=== PATIENT | male | born 1965 | race Caucasian/White ===

== ENCOUNTER 2018-04-27 08:52 | Day surgery (SDC) | payer OTHER ==
[~2018-04-27] VITALS: Ht 170.2 cm; Wt 70.8 kg
[~2018-04-27 08:52] MED LIST: IBUP400; LISI5; NAPR220 PO; NAPR550 PO; Naprosyn500 MG PO; OXYACE5T PO; RXOXYACE PO
--- NOTE | 2018-04-27 10:15 | NUR ---
04/27/18 1015 Tatiana Corrigan INTERSCALENE BLOCK PERFORMED AT BEDSIDE. SITE CHECK PERFORMED. DR. GALLARDO TO BEGIN PROCEDURE @ 1002; COMPLETED AT 1007. VSS THOUGHOUT; PT TOLERATED WELL.
--- NOTE | 2018-04-27 10:55 | NUR ---
04/27/18 1055 Vin Mejias A LATE ENTRY FOR 1008. INFORMED DR GALLARDO AND DR CAGE OF PT'S POTASSIUM LEVEL OF 3.3 ON 04/11/18. NO NEW ORDERS GIVEN. OKAY TO TAKE PT TO OR FOR SURGERY TO BEGIN.
--- NOTE | 2018-04-27 13:55 | NUR ---
04/27/18 6695 Brayden Conn LATE ENTRY PATIENT INTO SDU, VSS, TOLERATING PO FLUIDS WELL, FRIEND DIANN AT CHAIRSIDE, PATIENT DENIES PAIN & N/V AT THIS TIME. DISCHARGE INSTRUCTIONS REVIEWED WITH PATIENT AND FRIEND, NO QUESTIONS AT THIS MOMENT. NURSE ASSISTED PATIENT VIA WC TO HIS RIDE HOME.
== END 2018-04-27 13:40 | disposition home or self-care (01) ==
LOC: ORSCSDS 08:52
PROVIDERS: Orthopaedic Surgery
PROC: 0RNJ4ZZ Release Right Shoulder Joint, Percutaneous Endoscopic Approach (ICD-10-PCS; principal; 2018-04-27 10:30)
PROC: 0RBJ4ZZ Excision of Right Shoulder Joint, Percutaneous Endoscopic Approach (ICD-10-PCS; principal; 2018-04-27 10:30)
PROC: 0LQ14ZZ Repair Right Shoulder Tendon, Percutaneous Endoscopic Approach (ICD-10-PCS; principal; 2018-04-27 10:30)
DX: M75.121 Complete rotator cuff tear or rupture of right shoulder, not specified as traumatic (principal); S46.101A Unspecified injury of muscle, fascia and tendon of long head of biceps, right arm, initial encounter; M75.41 Impingement syndrome of right shoulder; J45.909 Unspecified asthma, uncomplicated
CPT/HCPCS: C1713; J0171; J1100; J1885; J2250; J2405; J3010; J7120

== ENCOUNTER 2021-07-22 06:01 | Day surgery (SDC) | payer OTHER ==
[~2021-07-22] VITALS: Ht 170.2 cm; Wt 73.6 kg
[~2021-07-22 06:01] MED LIST changes: +ACET500 PO; +ATOR10 PO; +GLUCOSAMINE PO; +IBUP200 PO; +OMEPRAZOLE MAGN20 MG PO; +Prinivil10 MG PO
--- NOTE | 2021-07-22 06:43 | NUR ---
Ambulatory in Day Surgery History, Chart, Medications and Allergies reviewed before start of procedure. Lungs clear T/O to Auscultation. Patient confirms NPO status and agrees with scheduled surgery. Pre-Op teaching done. Pt verbalizes understanding.
--- NOTE | 2021-07-22 08:37 | NUR ---
07/22/21 0837 Annabel Hayes PRIOR TO PREPPING PATIENT'S RIGHT LEG, NOTED REDNESS W/SMALL ABRASION THE SIZE OF A DIME OF THE LOWER ANTERIOR PORTION OF THE RIGHT PEREZ.
--- NOTE | 2021-07-22 11:06 | NUR ---
PATIENT CAME BACK FROM PACU TODAY 07/22/21 AT 1045. POD 0 RIGHT TOTAL HIP PATIENT IS A&OX4. VS ARE WNL AND IS ON RA. PATIENT DENIES PAIN AT THIS TIME. PATIENT DID HAVE A SPINAL DURING PROCEDURE AND DOESN'T HAVE FEELING FROM DERMATOME L3 DOWN. PEDAL PULSES ARE STRONG. THE 3 BULKY SPONGE DRESSINGS ARE C/D/I. POLAR PACK IN PLACE. HE IS TOLERATING SMALL PO INTAKE. CALL LIGHT WITHIN REACH. IS AT BEDSIDE.
--- NOTE | 2021-07-22 15:26 | NUR ---
SHIFT SUMMARY: POD 0 RIGHT TOTAL HIP A&OX4. VS ARE WNL AND IS ON RA. PAIN IS MANAGED WITH PO EDWARDO, TYLENOL, AND TORADOL. RIGHT HIP HAS 3 BULKY SPONGE DRESSINGS THAT ARE C/D/I. PATIENT DENIES ANY NUMBNESS AND TINGLING. HE WAS ABLE TO WORK WITH PHYSICAL THERAPY AND IS UP IN A CHAIR NOW. SBA WITH FWW AND GAIT BELT. HE IS TOLERATING PO INTAKE. CALL LIGHT WITHIN REACH. THE PLAN IS FOR ANOTHER PHYSICAL THERAPY SESSION TOMORROW AND THEN DISCHARGE HOME IF APPROPRIATE.
--- NOTE | 2021-07-23 04:08 | NUR ---
SUMMARY PT N/T HAS RESOLVED AND HAS BEEN TO VOID WELL. PT HAS BEEN AMBULATORY VIA GB AND FWW. PT POLAR PACK IN PLACE AND DRESSINGS ARE C/D/I. PT PAIN MANAGED WELL. PT CURRENTLY SLEEPING AND IS COMFORTABLE. CALL LIGHT IN REACH.
[2021-07-23 05:29] LABS: BASOPHILS ABSOLUTE AUTO 0.01 K/mm3 (0.00-0.23); BASOPHILS PERCENT AUTO 0 % (0-2); EOSINOPHILS PERCENT AUTO 0 % (0-6); Hematocrit 32.5 % (37.0-53.0); IMMATURE GRAN ABSOLUTE AUTO 0.03 K/mm3 (0.00-0.10); IMMATURE GRAN PERCENT AUTO 0 % (0-1); LYMPHOCYTES ABSOLUTE AUTO 0.51 K/mm3 (0.84-5.20); LYMPHOCYTES PERCENT AUTO 6 % (21-46); MONOCYTES ABSOLUTE AUTO 1.06 K/mm3 (0.16-1.47); MONOCYTES PERCENT AUTO 12 % (4-13); Mean Corpuscular HGB 30.4 pg (26.0-34.0); Mean Corpuscular HGB Conc 33.8 g/dL (31.5-36.5); Mean Corpuscular Volume 90 fL (80-100); Mean Platelet Volume 10.1 fL (9.1-12.4); NEUTROPHILS ABSOLUTE AUTO 7.34 K/mm3 (1.96-9.15); NEUTROPHILS PERCENT AUTO 82 % (41-73); Platelet Count 210 K/mm3 (150-400); RDW Coefficient Variation 13.1 % (11.7-14.2); Red Blood Cell Count 3.62 M/mm3 (4.30-5.90); White Blood Cell Count 8.95 K/mm3 (4.00-11.30)
[2021-07-23 05:45] LABS: Bun/Creatinine Ratio 18.2 (12.0-20.0); Calcium, Blood 8.8 mg/dL (8.5-10.1); Creatinine, Blood 0.61 mg/dL (0.60-1.20); Magnesium, Blood 2.2 mg/dL (1.6-2.4); Potassium, Blood 4.4 mmol/L (3.5-5.5)
[2021-07-23] MEDS ORDERED: Aspir 8181 MG PO (08:01)
[2021-07-23] MEDS ORDERED: PROM25 PO (08:02)
[2021-07-23] MEDS ORDERED: LINE600 PO (09:40)
[2021-07-23] MEDS ORDERED: OXAYDO5 M1 PO (09:41)
--- NOTE | 2021-07-23 10:30 | NUR ---
1029 DISCHARGE INSTRUCTIONS REVIEWED WITH PATIENT AND PATIENT QUESTIONS ANSWERED. PT AMBULATING WITH WALKER AND GAIT BELT, VERBALIZES HIP PRECAUTIONS. AJAY PO FOOD AND FLUID, REPORTS PAIN IS WELL CONTROLLED. PT IS IN AGREEMENT WITH PLAN TO DISCHARGE HOME
== END 2021-07-23 10:29 | disposition home or self-care (01) ==
LOC: ORSCMMR 06:01 → ORD 07:30 → SURS 10:55 → ORSCMMR 07-23 10:29
PROVIDERS: Orthopaedic Surgery
PROC: 0SR90JA Replacement of Right Hip Joint with Synthetic Substitute, Uncemented, Open Approach (ICD-10-PCS; principal; 2021-07-22 07:30)
PROC: 8E0YXBZ Computer Assisted Procedure of Lower Extremity (ICD-10-PCS; principal; 2021-07-22 07:30)
DX: M16.11 Unilateral primary osteoarthritis, right hip (principal); M87.051 Idiopathic aseptic necrosis of right femur; I10 Essential (primary) hypertension; K21.9 Gastro-esophageal reflux disease without esophagitis; Z79.899 Other long term (current) drug therapy; F17.220 Nicotine dependence, chewing tobacco, uncomplicated
CPT/HCPCS: 36415; 72170; 80048; 83735; 85025; 88305; 88311; 97110; 97116; 97162; 97165; 97530; 97535; A9270; C1713; C1776; J0171; J0735; J1100; J1885; J2250; J2370; J2405; J2704; J2795; J3010; J3370; J7050; J7060; J7120

== ENCOUNTER → 2023-05-23 | Outpatient (CLI) | payer OTHER ==
[~2023-05-23] MED LIST changes: +Aspir 8181 MG PO; +LINE600 PO; +OXAYDO5 M1 PO; +PROM25 PO
[2023-05-23 21:38] LABS: Percent Saturation 27.3 % (20.0-50.0)
== END ==
LOC: LAB SHORT 18:01 → LAB 18:01
PROVIDERS: Internal Medicine Hematology & Oncology
DX: E83.19 Other disorders of iron metabolism (principal)
CPT/HCPCS: 82728; 83540; 83550

== ENCOUNTER → 2023-11-28 | Outpatient (CLI) | payer OTHER ==
[2023-11-28 13:06] LABS: BASOPHILS ABSOLUTE AUTO 0.03 K/mm3 (0.00-0.23); BASOPHILS PERCENT AUTO 1 % (0-2); EOSINOPHILS ABSOLUTE AUTO 0.13 K/mm3 (0.00-0.68); EOSINOPHILS PERCENT AUTO 3 % (0-6); Hematocrit 42.1 % (37.0-53.0); Hemoglobin 14.3 g/dL (13.5-17.5); IMMATURE GRAN ABSOLUTE AUTO 0.01 K/mm3 (0.00-0.10); IMMATURE GRAN PERCENT AUTO 0 % (0-1); LYMPHOCYTES ABSOLUTE AUTO 1.09 K/mm3 (0.84-5.20); LYMPHOCYTES PERCENT AUTO 26 % (21-46); MONOCYTES ABSOLUTE AUTO 0.41 K/mm3 (0.16-1.47); MONOCYTES PERCENT AUTO 10 % (4-13); Mean Corpuscular HGB 30.2 pg (26.0-34.0); Mean Corpuscular Volume 89 fL (80-100); Mean Platelet Volume 9.8 fL (9.1-12.4); NEUTROPHILS ABSOLUTE AUTO 2.47 K/mm3 (1.96-9.15); NEUTROPHILS PERCENT AUTO 60 % (41-73); Platelet Count 313 K/mm3 (150-400); RDW Coefficient Variation 12.4 % (11.7-14.2); RDW Standard Deviation 40.8 fL (35.1-46.3); Red Blood Cell Count 4.74 M/mm3 (4.30-5.90); White Blood Cell Count 4.14 K/mm3 (4.00-11.30)
[2023-11-28 17:12] LABS: Alanine Aminotransfer (ALT/SGP 35 U/L (12-78); Albumin, Blood 3.7 g/dL (3.4-5.0); Albumin/Globulin Ratio 1.1 (0.8-1.8); Alk Phos 62 U/L (50-136); Anion Gap 13 mmol/L (3-11); Aspartate Aminotrans (AST/SGOT 25 U/L (12-37); Bilirubin, Total 0.7 mg/dL (0.1-1.0); Blood Urea Nitrogen 14 mg/dL (8-24); Bun/Creatinine Ratio 16.9 (12.0-20.0); CO2, Blood 26 mmol/L (21-32); Calcium, Blood 8.6 mg/dL (8.5-10.1); Chloride, Blood 105 mmol/L (98-108); Cholesterol 132 mg/dL (50-200); Creatinine, Blood 0.83 mg/dL (0.60-1.20); Globulin, Blood 3.3 g/dL (2.2-4.0); Glomerular Filtration Rate 101 (60-); Glucose, Blood 107 mg/dL (70-99); HDL Cholesterol 44 mg/dL (>39); LDL/HDL RATIO 0.6; Low Density Lipoprotein Chol 25 mg/dL (0-110); PSA, %Free 23.9 %; PSA, Free 0.152 ng/mL; Potassium, Blood 4.4 mmol/L (3.5-5.5); Prostate Specific Antigen 0.637 ng/mL (0.000-4.000); Sodium, Blood 140 mmol/L (136-145); Triglycerides 314 mg/dL (30-160); Very Low Density Lipoprot Chol 62 mg/dL (6-32)
[2023-11-29 16:42] LABS: HIV 1,2 COMBO ANTIGEN/ANTIBODY Negative (Negative)
[2023-11-29 17:59] LABS: HEPATITIS C AB CIA INTERP Negative (Negative); HEPATITIS C ANTIBODY CIA INDEX 0.11 IV
== END ==
LOC: LAB 09:10 → LAB SHORT 09:10
PROVIDERS: Nurse Practitioner Family
DX: Z00.00 Encounter for general adult medical examination without abnormal findings (principal); Z11.59 Encounter for screening for other viral diseases; Z12.5 Encounter for screening for malignant neoplasm of prostate; Z13.6 Encounter for screening for cardiovascular disorders
CPT/HCPCS: 80053; 80061; 84153; 84154; 84443; 85025; 86803; 87389

== ENCOUNTER → 2024-06-26 | Outpatient (CLI) | payer OTHER ==
[2024-06-26 16:52] LABS: BASOPHILS ABSOLUTE AUTO 0.03 K/mm3 (0.00-0.23); BASOPHILS PERCENT AUTO 1 % (0-2); EOSINOPHILS ABSOLUTE AUTO 0.09 K/mm3 (0.00-0.68); EOSINOPHILS PERCENT AUTO 2 % (0-6); Hematocrit 41.6 % (37.0-53.0); Hemoglobin 14.4 g/dL (13.5-17.5); IMMATURE GRAN ABSOLUTE AUTO 0.02 K/mm3 (0.00-0.10); IMMATURE GRAN PERCENT AUTO 0 % (0-1); LYMPHOCYTES ABSOLUTE AUTO 1.05 K/mm3 (0.84-5.20); LYMPHOCYTES PERCENT AUTO 20 % (21-46); MONOCYTES ABSOLUTE AUTO 0.55 K/mm3 (0.16-1.47); MONOCYTES PERCENT AUTO 10 % (4-13); Mean Corpuscular HGB 30.6 pg (26.0-34.0); Mean Corpuscular HGB Conc 34.6 g/dL (31.5-36.5); Mean Corpuscular Volume 89 fL (80-100); Mean Platelet Volume 9.9 fL (9.1-12.4); NEUTROPHILS ABSOLUTE AUTO 3.57 K/mm3 (1.96-9.15); NEUTROPHILS PERCENT AUTO 67 % (41-73); Platelet Count 296 K/mm3 (150-400); RDW Coefficient Variation 12.5 % (11.7-14.2); RDW Standard Deviation 40.6 fL (35.1-46.3); White Blood Cell Count 5.31 K/mm3 (4.00-11.30)
[2024-06-26 17:44] LABS: Alanine Aminotransfer (ALT/SGP 33 U/L (12-78); Albumin, Blood 3.9 g/dL (3.4-5.0); Albumin/Globulin Ratio 1.4 (0.8-1.8); Alk Phos 69 U/L (50-136); Anion Gap 8 mmol/L (3-11); Aspartate Aminotrans (AST/SGOT 26 U/L (12-37); Bilirubin, Direct 0.2 mg/dL (0.0-0.3); Bilirubin, Indirect 0.8 mg/dL (0.1-0.7); Blood Urea Nitrogen 10 mg/dL (8-24); CHOL/HDL RATIO 2.7; CO2, Blood 26 mmol/L (21-32); Calcium, Blood 9.4 mg/dL (8.5-10.1); Chloride, Blood 104 mmol/L (98-108); Cholesterol 149 mg/dL (50-200); Ferritin, Serum 428 ng/mL (26-388); Globulin, Blood 2.8 g/dL (2.2-4.0); Glucose, Blood 108 mg/dL (70-99); HDL Cholesterol 55 mg/dL (>39); Iron Serum 107 ug/dL (65-175); LDL/HDL RATIO 1.3; Low Density Lipoprotein Chol 74 mg/dL (0-110); Percent Saturation 33.1 % (20.0-50.0); Potassium, Blood 4.2 mmol/L (3.5-5.5); Sodium, Blood 134 mmol/L (136-145); Total Iron Binding Capacity 323 ug/dL (250-450); Total Protein, Blood 6.7 g/dL (6.4-8.2); Triglycerides 101 mg/dL (30-160); Very Low Density Lipoprot Chol 20 mg/dL (6-32)
[2024-06-26 19:00] LABS: Bun/Creatinine Ratio 14.2 (12.0-20.0); Glomerular Filtration Rate 105 (60-); Prostate Specific Antigen 0.558 ng/mL (0.000-4.000)
== END | disposition home or self-care (01) ==
LOC: LAB SHORT 09:48 → LAB 09:48
PROVIDERS: Nurse Practitioner Family
DX: Z12.5 Encounter for screening for malignant neoplasm of prostate (principal); I10 Essential (primary) hypertension; E78.5 Hyperlipidemia, unspecified; Z71.41 Alcohol abuse counseling and surveillance of alcoholic
CPT/HCPCS: 80053; 80061; 82248; 82607; 82728; 82746; 83036; 83540; 83550; 83880; 85025; G0103